=== PATIENT | male | born 1975 | race Caucasian/White ===

== ENCOUNTER → 2016-12-26 | Outpatient (CLI) | payer BC | END | disposition home or self-care (01) | LOC: C.LAB 15:38 | PROVIDERS: ATTEND Internal Medicine Endocrinology, Diabetes & Metabolism | DX: E55.9 Vitamin D deficiency, unspecified (principal); Z86.39 Personal history of other endocrine, nutritional and metabolic disease; E83.51 Hypocalcemia ==